=== PATIENT | female | born 1985 | race Caucasian/White ===

== ENCOUNTER 2023-02-17 05:42 | Emergency (ER) | payer OTHER, MEDICAID, SELFPAY ==
[2023-02-17] VITALS (9 sets, daily range): BP systolic 124–137; BP diastolic 78–98; PULSE 80–95; RESP 22; TEMP 37; O2SAT 95–100; BMI 21.6
--- NOTE | 2023-02-17 05:55 | ED.ABDPAIN ---
HPI - Abdominal Pain <DO Kim Hendricks Last Filed: 02/18/23 10:46> General Chief Complaint: Abdominal Pain Stated Complaint: left abd pain Time Seen by Provider: 02/17/23 05:55 Source: patient and RN notes reviewed Mode of arrival: Ambulatory Limitations: no limitations History of Present Illness HPI narrative: This is a 38-year-old female on Suboxone daily with IUD in place, patient states she started developing some left lower quadrant pain last night which sort of improved and then got significantly worse overnight into this morning. Patient states subjective fevers, chills and sweats, she is had nausea but no vomiting. She denies any chest pain or shortness of breath, no lightheadedness or syncope. Patient states pain is very localized left lower quadrant, no back or flank pain. Patient states she is not had similar symptoms in the past. No dysuria, urgency or frequency. No vaginal bleeding or discharge. Patient has a IUD in place she states she only gets menses very rarely. She is not had any menses recently. States she has had bowel movements recently, felt like she had the urge to go to the bathroom but did not have a bowel movement this morning. No black or bloody stools recently. No diarrhea. Patient states her only medication currently Suboxone. Denies any prior surgeries. No known drug allergies. Does use tobacco, no alcohol, no recreational drugs has history of former use. Patient is accompanied by her family. PCP is Dr. Joshua. Related Data Previous Rx's Medication Instructions Recorded prazosin 1 mg capsule 1 mg PO QDAY #30 caps 05/15/16 sertraline 50 mg tablet (Zoloft) 0 PO QDAY #30 tabs 05/15/16 methylphenidate HCl 10 mg tablet 10 mg PO SEE INSTRUCTIONS #45 tabs 05/22/16 Allergies Allergy/AdvReac Type Severity Reaction Status Date / Time No Known Drug Allergies Allergy Verified 02/17/23 05:53 Review of Systems <DO Kim Hendricks Last Filed: 02/18/23 10:46> Review of Systems ROS Unobtainable: All systems reviewed & are unremarkable except as noted in HPI and below Patient History <DO Kim Hendricks Last Filed: 02/18/23 10:46> Social History Smoking Status: Current every day smoker Exam <Madison Dominguez DO - Last Filed: 02/18/23 10:46> Narrative Exam Narrative: GENERAL: Alert and oriented x three, female in moderate distress. HEENT: Head normocephalic, atraumatic, EOMI, pupils reactive, face symmetric, moist mucous membranes NECK: Supple, full range of motion CARDIOVASCULAR: Regular rate and rhythm without murmurs, rubs or gallops. RESPIRATORY: Breath sounds equal bilaterally, no wheezes rales or rhonchi. ABDOMEN: Soft, positive for left lower quadrant tenderness. Normoactive bowel sounds all 4 quadrants. No guarding or rebound, rigidity, no mass. No pulsatile mass or bruit. : No CVA tenderness EXTREMITIES: Normal range of motion, no clubbing or edema. Neurovascularly intact NEUROLOGICAL: Cranial nerves II through XII grossly intact. Moving all extremities SKIN: Warm, dry, no petechiae, no rashes or lesions. Initial Vital Signs Initial Vital Signs: Vital Signs Pulse Oximetry 100 02/17/23 05:50 <Bogdan Carr DO - Last Filed: 02/17/23 08:48> Initial Vital Signs Initial Vital Signs: Vital Signs Pulse Oximetry 100 02/17/23 05:50 Course <Madison Dominguez DO - Last Filed: 02/18/23 10:46> Orders Ordered: Discontinued Medications Ketorolac Tromethamine (Ketorolac 30 Mg/Ml Vial) 15 mg IV NOW ONE Stop: 02/17/23 06:14 Last Admin: 02/17/23 06:16 Dose: 15 mg Documented By: Ondansetron HCl (Ondansetron 4 Mg Odt) 4 mg PO NOW PRN PRN Reason: Nausea And Vomiting Ondansetron HCl (Ondansetron 4 Mg/2 Ml Inj) 4 mg IV NOW PRN PRN Reason: Nausea And Vomiting Last Admin: 02/17/23 06:08 Dose: 4 mg Documented By: Vital Signs Vital signs: Vital Signs - 8 hr 02/17/23 05:53 02/17/23 05:50 02/17/23 06:06 Temperature 98.6 F Pulse Rate 87 Respiratory Rate 22 Blood Pressure 137/79 124/78 Pulse Oximetry 100 100 Oxygen Delivery Method Room Air 02/17/23 06:06 02/17/23 06:30 02/17/23 07:00 Temperature Pulse Rate 83 89 81 Respiratory Rate Blood Pressure Pulse Oximetry 100 100 98 Oxygen Delivery Method 02/17/23 07:30 02/17/23 08:00 Temperature Pulse Rate 81 80 Respiratory Rate Blood Pressure Pulse Oximetry 95 96 Oxygen Delivery Method <Bogdan Carr DO - Last Filed: 02/17/23 08:48> Orders Ordered: Discontinued Medications Ketorolac Tromethamine (Ketorolac 30 Mg/Ml Vial) 15 mg IV NOW ONE Stop: 02/17/23 06:14 Last Admin: 02/17/23 06:16 Dose: 15 mg Documented By: Ondansetron HCl (Ondansetron 4 Mg Odt) 4 mg PO NOW PRN PRN Reason: Nausea And Vomiting Ondansetron HCl (Ondansetron 4 Mg/2 Ml Inj) 4 mg IV NOW PRN PRN Reason: Nausea And Vomiting Last Admin: 02/17/23 06:08 Dose: 4 mg Documented By: Vital Signs Vital signs: Vital Signs - 8 hr 02/17/23 05:53 02/17/23 05:50 02/17/23 06:06 Temperature 98.6 F Pulse Rate 87 Respiratory Rate 22 Blood Pressure 137/79 124/78 Pulse Oximetry 100 100 Oxygen Delivery Method Room Air 02/17/23 06:06 02/17/23 06:30 02/17/23 07:00 Temperature Pulse Rate 83 89 81 Respiratory Rate Blood Pressure Pulse Oximetry 100 100 98 Oxygen Delivery Method 02/17/23 07:30 02/17/23 08:00 Temperature Pulse Rate 81 80 Respiratory Rate Blood Pressure Pulse Oximetry 95 96 Oxygen Delivery Method MDM - Abdominal Pain <Madison Dominguez DO - Last Filed: 02/18/23 10:46> Lab Data 02/17/23 06:06 02/17/23 06:06 Labs: Lab Results 02/17/23 02/17/23 02/17/23 Range/Units 06:04 06:06 06:06 WBC 15.9 H (4.5-11.0) X10^3/uL RBC 4.38 (4.0-5.2) X10^6/uL Hgb 13.1 (12.0-16.0) g/dL Hct 38.7 (36-46) % MCV 88.4 (80-100) fL MCH 29.8 (26-34) PG MCHC 33.7 (30-36) % RDW 13.7 (11.6-14.8) % Plt Count 375 (150-400) X10^3/uL Neut % (Auto) 82.0 H (50-75) % Lymph % (Auto) 11.9 L (25-40) % Curry % (Auto) 5.5 (3-14) % Eos % (Auto) 0.3 L (2-4) % Baso % (Auto) 0.3 (0-2) % Neut # (Auto) 56519 H (3031-0557) /uL Lymph # (Auto) 1900 (5252-4947) /uL Curry # (Auto) 900 (0-900) /uL Eos # (Auto) 0 (0-450) /uL Baso # (Auto) 0 (0-100) /uL Sodium 138 (137-145) mmol/L Potassium 3.7 (3.4-5.1) mmol/L Chloride 102 (98-107) mmol/L Carbon Dioxide 28 (22-32) mmol/L BUN 14 (7-17) mg/dL Creatinine 0.89 (0.52-1.04) mg/dL Estimated GFR > 60 (>60) mL/min BUN/Creatinine Ratio 15.7 (6-22) Glucose 100 (70-100) mg/dL Calcium 9.9 (8.4-10.2) mg/dL Total Bilirubin 0.3 (0.2-1.3) mg/dL AST 22 (14-36) IU/L ALT 13 (<35) IU/L Alkaline Phosphatase 106 (38-126) U/L Total Protein 7.9 (6.3-8.2) g/dL Albumin 4.3 (3.5-5.0) g/dL Globulin 3.6 (1.7-4.1) g/dL Albumin/Globulin Ratio 1.2 (1.0-2.8) Lipase 39 (23-300) U/L Urine Color Yellow Urine Appearance Clear Urine pH 7.0 (4.5-8.0) Ur Specific [place] 1.020 (1.000-1.035) Urine Protein Trace H (Negative) Urine Glucose (UA) Negative (Negative) g/dL Urine Ketones Trace H (NEGATIVE) Urine Occult Blood Trace-intact (Negative) Urine Nitrate Negative (Negative) Urine Bilirubin Negative (NEGATIVE) Urine Urobilinogen 2.0 H (0.2) E.U./dL Ur Leukocyte Esterase Trace H (NEGATIVE) Urine RBC 1-5/hpf (0-5/HPF) Urine WBC 1-5/hpf (0-5/HPF) Ur Squamous Epith Cells 1-5 /hpf (0-5/HPF) Urine Bacteria None seen (None) Ur Culture Indicated? Specimen cultured Point of care testing: Point of Care Testing Test Results Negative Urine Dip Bedside Urine Glucose Negative Bedside Urine Bilirubin - Negative Bedside Urine Ketone - Negative Urine Specific [place] 1.020 Bedside Urine Occult Blood + Bedside Urine pH 6.0 Bedside Urine Protein +/- 15 Bedside Urine Urobilinogen - Negative Bedside Urine Nitrite - Negative Bedside Urine Leukocytes - Negative Esterase MDM Narrative Medical decision making narrative: This is a 38-year-old female presents with fairly sudden onset left lower quadrant tenderness. Patient has not have had similar symptoms in the past. Has history of former substance abuse on Suboxone for some time. Has not had similar symptoms in the past. Is tender in the left lower quadrant, vitals are overall appropriate, point of care urine does not show clear signs of infection, UA shows trace protein, ketones, 2+ urobilinogen and trace leuks, 1-5 WBCs, 1-5 WBCs, 1-5 squamous epithelial no bacteria. Was cultured. test is negative. Patient does have an IUD in place. Labs, discussed with patient imaging would recommend ultrasound versus CT diverticulitis is on the differential so would seem CT over US at this time. CBC shows a white count of 15, normal hemoglobin and platelets, CMP, LFTs are all negative. Differential includes ovarian cyst, kidney stones although less likely urine sample, diverticulitis which is little bit more concerning with left lower quadrant tenderness and no flank pain. Pyelonephritis. Or PID although this also seems less likely. CT abdomen pending. Patient signed out to Dr. Carr while work up is pending. Dr carr: Received turned over. With the patient's history and physical. CT scan report shows left-sided distal ureteral stone which does correspond with her presenting symptoms. Kidney function is unremarkable and urinalysis today is not consistent with a urinary tract infection. Patient states she actually is feeling much better which I suspect that the stone has progressed to the bladder. Will discharge patient home with return precautions. She expressed understanding and agreement. <Bogdan Carr, DO - Last Filed: 02/17/23 08:48> Lab Data Attestation: I reviewed the patient's lab results. Labs: Lab Results 02/17/23 02/17/23 02/17/23 Range/Units 06:04 06:06 06:06 WBC 15.9 H (4.5-11.0) X10^3/uL RBC 4.38 (4.0-5.2) X10^6/uL Hgb 13.1 (12.0-16.0) g/dL Hct 38.7 (36-46) % MCV 88.4 (80-100) fL MCH 29.8 (26-34) PG MCHC 33.7 (30-36) % RDW 13.7 (11.6-14.8) % Plt Count 375 (150-400) X10^3/uL Neut % (Auto) 82.0 H (50-75) % Lymph % (Auto) 11.9 L (25-40) % Curry % (Auto) 5.5 (3-14) % Eos % (Auto) 0.3 L (2-4) % Baso % (Auto) 0.3 (0-2) % Neut # (Auto) 53852 H (8511-3861) /uL Lymph # (Auto) 1900 (7730-5966) /uL Curry # (Auto) 900 (0-900) /uL Eos # (Auto) 0 (0-450) /uL Baso # (Auto) 0 (0-100) /uL Sodium 138 (137-145) mmol/L Potassium 3.7 (3.4-5.1) mmol/L Chloride 102 (98-107) mmol/L Carbon Dioxide 28 (22-32) mmol/L BUN 14 (7-17) mg/dL Creatinine 0.89 (0.52-1.04) mg/dL Estimated GFR > 60 (>60) mL/min BUN/Creatinine Ratio 15.7 (6-22) Glucose 100 (70-100) mg/dL Calcium 9.9 (8.4-10.2) mg/dL Total Bilirubin 0.3 (0.2-1.3) mg/dL AST 22 (14-36) IU/L ALT 13 (<35) IU/L Alkaline Phosphatase 106 (38-126) U/L Total Protein 7.9 (6.3-8.2) g/dL Albumin 4.3 (3.5-5.0) g/dL Globulin 3.6 (1.7-4.1) g/dL Albumin/Globulin Ratio 1.2 (1.0-2.8) Lipase 39 (23-300) U/L Urine Color Yellow Urine Appearance Clear Urine pH 7.0 (4.5-8.0) Ur Specific [place] 1.020 (1.000-1.035) Urine Protein Trace H (Negative) Urine Glucose (UA) Negative (Negative) g/dL Urine Ketones Trace H (NEGATIVE) Urine Occult Blood Trace-intact (Negative) Urine Nitrate Negative (Negative) Urine Bilirubin Negative (NEGATIVE) Urine Urobilinogen 2.0 H (0.2) E.U./dL Ur Leukocyte Esterase Trace H (NEGATIVE) Urine RBC 1-5/hpf (0-5/HPF) Urine WBC 1-5/hpf (0-5/HPF) Ur Squamous Epith Cells 1-5 /hpf (0-5/HPF) Urine Bacteria None seen (None) Ur Culture Indicated? Specimen cultured Point of care testing: Point of Care Testing Test Results Negative Urine Dip Bedside Urine Glucose Negative Bedside Urine Bilirubin - Negative Bedside Urine Ketone - Negative Urine Specific [place] 1.020 Bedside Urine Occult Blood + Bedside Urine pH 6.0 Bedside Urine Protein +/- 15 Bedside Urine Urobilinogen - Negative Bedside Urine Nitrite - Negative Bedside Urine Leukocytes - Negative Esterase Imaging Data CT scan - abdomen/pelvis: Radiologist's Impression: PROCEDURE:? CT ABDOMEN PELVIS W CON ? INDICATIONS:? LLQ pain, started last night, no prior ? TECHNIQUE:? After the administration of intravenous contrast, axial sections acquired from the lung bases to the pubic symphysis.? Coronal and sagittal reformats were performed.? For radiation dose reduction, the following was used:? automated exposure control, adjustment of mA and/or kV according to patient size.? ? COMPARISON:? None. ? FINDINGS:? Image quality:? Excellent.? ? Lung bases:? Unremarkable. Heart:? No significant findings. ? ABDOMEN: Liver:? Unremarkable.? ? Gallbladder:? Unremarkable.? ? Biliary ducts:? Unremarkable.? ? Pancreas:? Unremarkable.? ? Spleen:? Unremarkable.? ? Adrenal Glands:? Unremarkable.? ? Kidneys and Ureters:? Delayed left nephrogram with mild left perinephric stranding and mild left-sided hydroureteronephrosis secondary to a 4 mm obstructing stone at the left ureterovesicular junction.? The right kidney enhances normally without hydronephrosis. ? Stomach and Bowel:? Stomach, small bowel loops, and colon are unremarkable.? Moderate stool burden throughout the colon.? Appendix is normal. Peritoneum:? No abnormal intraperitoneal fluid.? No free air.? ? Ventral Wall: ? No hernias.? Abdominal Nodes:? No retroperitoneal or mesenteric adenopathy by size criteria.? Vessels:? Aorta and inferior vena cava are normal in size.? ? PELVIS: Pelvic Organs:? Intrauterine device in place. Bladder:? Unremarkable.? ? Pelvic Nodes: No enlarged lymph nodes.? Miscellaneous: No hernias are seen. ? ? ? Bones:? Unremarkable.? IMPRESSION:? ? Delayed left nephrogram with mild hydroureteronephrosis secondary to a 4 mm stone at the left ureterovesicular junction. ? Findings are concordant with preliminary interpretation provided by [facility]. MDM Narrative Medical decision making narrative: This is a 38-year-old female presents with fairly sudden onset left lower quadrant tenderness. Patient has not have had similar symptoms in the past. Has history of former substance abuse on Suboxone for some time. Has not had similar symptoms in the past. Is tender in the left lower quadrant, vitals are overall appropriate, point of care urine does not show clear signs of infection, UA shows trace protein, ketones, 2+ urobilinogen and trace leuks, 1-5 WBCs, 1-5 WBCs, 1-5 squamous epithelial no bacteria. Was cultured. test is negative. Patient does have an IUD in place. Labs, discussed with patient imaging would recommend ultrasound versus CT diverticulitis is on the differential so would seem CT over US at this time. CBC shows a white count of 15, normal hemoglobin and platelets, CMP, LFTs are all negative. Differential includes ovarian cyst, kidney stones although less likely urine sample, diverticulitis which is little bit more concerning with left lower quadrant tenderness and no flank pain. Pyelonephritis. Or PID although this also seems less likely. CT abdomen pending. Patient signed out to Dr. Carr while work up is pending. Dr carr: Received turned over. With the patient's history and physical. CT scan report shows left-sided distal ureteral stone which does correspond with her presenting symptoms. Kidney function is unremarkable and urinalysis today is not consistent with a urinary tract infection. Patient states she actually is feeling much better which I suspect that the stone has progressed to the bladder. Will discharge patient home with return precautions. She expressed understanding and agreement. Discharge Plan Departure Patient Disposition: Home Clinical Impression: Left ureteral calculus Instructions: DI for Kidney Stones Activity Restrictions/Additional Instructions: Continue to take all of your medications as directed. Be sure that you were staying hydrated. Return to the emergency department for fevers, pain that is not controlled with your current medicine or vomiting that is not controlled with medicine. Contact your primary provider for follow-up. Prescriptions: No Action prazosin 1 MG capsule 1 mg PO QDAY Qty: 30 0RF sertraline [Zoloft] 50 MG tablet 0 PO QDAY Qty: 30 3RF methylphenidate HCl 10 MG tablet 10 mg PO SEE INSTRUCTIONS Qty: 45 0RF Referrals: Marilyn Joshua DO [Primary Care Provider] - Stand Alone Forms: Patient Portal/API
[2023-02-17] MEDS: ONDANSETRON 4 MG/2 ML INJ IV (06:08)
[2023-02-17 06:13] LABS: Appearance Urine UA CLEAR; Bilirubin Urine UA NEGATIVE (NEGATIVE); Color Urine UA YELLOW; Glucose Urine UA NEGATIVE (Negative); Ketones Urine UA TRACE (NEGATIVE); Leukocyte Esterase Urine UA TRACE (NEGATIVE); Nitrite Urine UA NEGATIVE (Negative); Occult Blood Urine UA TRACE-INTACT (Negative); Protein Urine UA TRACE (Negative)
--- NOTE | 2023-02-17 06:13 | DI.CT.S_ITS ---
PROCEDURE: CT ABDOMEN PELVIS W CON INDICATIONS: LLQ pain, started last night, no prior TECHNIQUE: After the administration of intravenous contrast, axial sections acquired from the lung bases to the pubic symphysis. Coronal and sagittal reformats were performed. For radiation dose reduction, the following was used: automated exposure control, adjustment of mA and/or kV according to patient size. COMPARISON: None. FINDINGS: Image quality: Excellent. Lung bases: Unremarkable. Heart: No significant findings. ABDOMEN: Liver: Unremarkable. Gallbladder: Unremarkable. Biliary ducts: Unremarkable. Pancreas: Unremarkable. Spleen: Unremarkable. Adrenal Glands: Unremarkable. Kidneys and Ureters: Delayed left nephrogram with mild left perinephric stranding and mild left-sided hydroureteronephrosis secondary to a 4 mm obstructing stone at the left ureterovesicular junction. The right kidney enhances normally without hydronephrosis. Stomach and Bowel: Stomach, small bowel loops, and colon are unremarkable. Moderate stool burden throughout the colon. Appendix is normal. Peritoneum: No abnormal intraperitoneal fluid. No free air. Ventral Wall: No hernias. Abdominal Nodes: No retroperitoneal or mesenteric adenopathy by size criteria. Vessels: Aorta and inferior vena cava are normal in size. PELVIS: Pelvic Organs: Intrauterine device in place. Bladder: Unremarkable. Pelvic Nodes: No enlarged lymph nodes. Miscellaneous: No hernias are seen. Bones: Unremarkable. IMPRESSION: Delayed left nephrogram with mild hydroureteronephrosis secondary to a 4 mm stone at the left ureterovesicular junction. Findings are concordant with preliminary interpretation provided by [facility]. Dictated by: Ollie Krishna M.D. on 02/17/2023 at 8:19 Approved by: Ollie Krishna M.D. on 02/17/2023 at 8:23
[2023-02-17] MEDS: KETOROLAC 30 MG/ML VIAL 15 MG IV (06:16)
[2023-02-17 06:18] LABS: Add Manual Diff / Slide Review NO; Basophils Absolute Auto 0 /uL (0-100); Basophils Percent Auto 0.3 % (0-2); Eosinophils Absolute Auto 0 /uL (0-450); Eosinophils Percent Auto 0.3 % (2-4); Hematocrit 38.7 % (36-46); Hemoglobin 13.1 g/dL (12.0-16.0); Lymphocytes Absolute Auto 1900 /uL (1100-4500); Lymphocytes Percent Auto 11.9 % (25-40); Mean Corpuscular HGB Conc 33.7 % (30-36); Mean Corpuscular Hemoglobin 29.8 PG (26-34); Mean Corpuscular Volume 88.4 fL (80-100); Monocytes Absolute Auto 900 /uL (0-900); Monocytes Percent Auto 5.5 % (3-14); Neutrophils Absolute Auto 13100 /uL (1500-7000); Platelet Count 375 X10^3/uL (150-400); Red Blood Cell Count 4.38 X10^6/uL (4.0-5.2); Red Cell Distribution Width 13.7 % (11.6-14.8); White Blood Cell Count 15.9 X10^3/uL (4.5-11.0)
[2023-02-17 06:24] LABS: Alanine Aminotransferase 13 IU/L (<35); Albumin 4.3 g/dL (3.5-5.0); Albumin Globulin Ratio 1.2 (1.0-2.8); Alkaline Phosphatase 106 U/L (38-126); Aspartate Aminotransferase 22 IU/L (14-36); BUN Creatinine Ratio 15.7 (6-22); Bilirubin Total 0.3 mg/dL (0.2-1.3); Blood Urea Nitrogen 14 mg/dL (7-17); Calcium 9.9 mg/dL (8.4-10.2); Carbon Dioxide 28 mmol/L (22-32); Chloride 102 mmol/L (98-107); Estimated Glomerular Filt Rate > 60 mL/min (>60); Globulin 3.6 g/dL (1.7-4.1); Glucose 100 mg/dL (70-100); HEMOLYSIS < 15 (0-50); Lipase 39 U/L (23-300); Potassium 3.7 mmol/L (3.4-5.1); Sodium 138 mmol/L (137-145); Total Protein 7.9 g/dL (6.3-8.2)
[2023-02-17 06:30] LABS: Bacteria Urine None Seen; Culture Indicated Urine Specimen Cultured; RBC Urine 1-5/HPF (0-5/HPF); Squamous Epithelial Cell Urine 1-5 /HPF (0-5/HPF); WBC Urine 1-5/HPF (0-5/HPF)
== END 2023-02-17 08:54 | disposition home or self-care (01) ==
PROVIDERS: Emergency Medicine; Emergency Provider Emergency Medicine; Family Provider Family Medicine; PCP Family Medicine
DX: N20.1 Calculus of ureter (principal)
CPT/HCPCS: 36415; 74177; 80053; 81001; 81003; 81025; 83690; 85025; 87077; 87086; 87186; 96374; 96375; 99284; J1885; J2405; Q9967